=== PATIENT | male | born 2000 | race Caucasian/White ===

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

== ENCOUNTER 2020-07-14 07:34 | Emergency (ER) | payer OTHER ==
[2020-07-14 07:43] VITALS: BP 138/68; PULSE 73; TEMP 98.2; BMI 31.1
[2020-07-14] MEDS ORDERED: IBUPROFEN 600 MG TABLET (FP) PO ONE ×2 (07:51→08:33)
--- NOTE | 2020-07-14 08:38 | PDOC ---
Documentation entered by Susanna Cole SCRIBE, acting as scribe for Mercedes Robertson MD. Mercedes Robertson MD: This documentation has been prepared by the Douglas rajput Xhesika, SCRIBE, under my direction and personally reviewed by me in its entirety. I confirm that the documentation accurately reflects all work, treatment, procedures, and medical decision making performed by me. History of Present Illness - General Chief Complaint: Injury Stated Complaint: L ANKLE INJURY Time Seen by Provider: 07/14/20 07:50 History Source: Patient Exam Limitations: No Limitations - History of Present Illness Initial Comments: 07/14/20 08:01 HPI The pt is a 19y/o M with no pmh who presents to the ED with L sided ankle pain and numbness s/p injuy. 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 Pt denies falling, hitting his head or LOC. Pt denies any LE weakness or tingling. Denies fever, chills, chest pain, SOB, palpitation, dizziness, weakness, N, V, D, abdominal pain, bladder and bowel problems, leg swelling. Allergies: None Past Medical History: none Social history: Lives with family. No tobacco, ETOH or drug use. Surgical history: Appendicitis Meds: as documented in EMR Review of Systems Constitutional: no fevers or chills. Abdomen: no abdominal pain MUSCULOSKELETAL: +L sided ankle pain and numbness Back: no back pain SKIN: no redness or skin changes, no discharge, no rash. No wounds. Hematologic: no easy bruising/bleeding. NEUROLOGIC: No weakness, numbness or tingling. Allergic/Immunologic: no allergies All other systems reviewed and negative, or as documented in HPI. physical exam General: NAD, well appearing Abdomen: soft, no tenderness, nondistended Vascular: 2+ DP pulses symmetric and equal. Back: no midline tenderness, no stepoffs, FROM MSK: soft compartment. no calf tenderness. 5/5 plantar and dorsiflexion. SILT. no laxity at knee jt. 2+ DP pulses bilaterally. +mild lateral malleolus tenderness. +lateral swelling and tenderness of dorsal foot. No proximal fibular tenderness. no deformity Neuro: alert, no focal neurologic deficits Skin: color normal color, warm and well perfused. Cap refill <2 sec. 07/14/20 08:55 07/14/20 09:08 Past History - Medical History Allergies/Adverse Reactions: Allergies Allergy/AdvReac Type Severity Reaction Status Date / Time No Known Allergies Allergy Verified 12/24/18 17:47 Home Medications: Ambulatory Orders NK [No Known Home Medication] 07/14/20 COPD: No DVT: No - Surgical History Appendectomy: Yes - Immunization History Immunization Up to Date: Yes - Psycho-Social/Smoking History Smoking History: Never smoked Have you smoked in the past 12 months: No Information on smoking cessation initiated: No - Substance Abuse Hx (Audit-C & DAST Scrn) How often the patient has a drink containing alcohol: Never Score: In Men: 4 or > Positive; In Women: 3 or > Positive: 0 Screen Result (Pos requires Nsg. Audit-10AR): Negative In the last yr the pt used illegal drug/Rx for NonMed reason: No Score: Yes response is considered Positive: 0 Screen Result (Positive result requires Nsg. DAST-10): Negative *Physical Exam - Vital Signs Last Vital Signs Temp Pulse Resp BP Pulse Ox 98.2 F 73 18 138/68 99 07/14/20 07:36 07/14/20 07:36 07/14/20 07:36 07/14/20 07:36 07/14/20 07:36 Medical Decision Making - Medical Decision Making 07/14/20 08:34 Vital Signs Temp Pulse Resp BP Pulse Ox 98.2 F 73 18 138/68 99 07/14/20 07:36 07/14/20 07:36 07/14/20 07:36 07/14/20 07:36 07/14/20 07:36 Vital signs reviewed within normal limits Differential diagnosis includes contusion, ankle fracture, fibula fracture, foot fracture, hematoma. Neurovascularly intact No head trauma or injury X-ray of foot and ankle negative for acute fracture dislocation Patient most likely has a contusion of his left foot/ankle. Will provide ankle stirrup and Gagandeep wrap and crutches for ambulatory support. Rest ice and elevation, physical activity as tolerated, weightbearing as tolerated Discharge with primary follow-up/orthopedics as needed Discharge - Discharge Information Problems reviewed: Yes Clinical Impression/Diagnosis: Strain of left ankle and foot Qualifiers: Encounter type: initial encounter Qualified Code(s): S96.912A - Strain of unspecified muscle and tendon at ankle and foot level, left foot, initial encounter Contusion, foot Qualifiers: Encounter type: initial encounter Laterality: left Qualified Code(s): S90.32XA - Contusion of left foot, initial encounter Condition: Stable Disposition: HOME - Admission No - Follow up/Referral Referrals: Jarvis Souza MD [Staff Physician] - Rosalio Lloyd DO [Staff Physician] - - Patient Discharge Instructions Patient Printed Discharge Instructions: DI for Ankle Sprain, DI for Contusion Additional Instructions: You most likely have musculoskeletal strain/sprain of your foot and ankle with contusion (swelling of the area/bruising of the tissue) Avoid heavy lifting or strenuous activity to minimize further injury This should heal over the next 3-5 days. RICE rest ice elevate the affected area Rest, Ice (20 minutes at a time, 3 times a day), Compression (GAGANDEEP wrap or splint), Elevation (above the heart). Apply ice to the area for 10 minutes every 2 hours for the first 2 days after the injury to reduce swelling. continue with range of motion exercises, as this will facilitate the healing process; avoid being bed bound and immobile. If you have any worsening of symptoms, including severe pain/swelling/redness/numbness/changes in sensation/weakness/paralysis or any other concerns please return to the Emergency Department immediately. You were given a copy of the results from any tests performed today in the Emergency Department which have results available. Show these to your doctor(s). Some of the tests we sent may not have results yet so please call or have your doctor call the Emergency Department to follow up on all results. Please continue taking your home medications as directed. Do not use alcohol when taking any medication (especially antibiotics, tylenol or other pain medication) unless you check with the doctor or pharmacist. -flexeril is a muscle relaxant, take three times a day as needed may cause sleepiness, do not drive or operate machinery or take with alcohol. -topical lidoderm patch to the area affected, 12 hours on and 12 hours off.. -May take ibuprofen 400-600mg and/or tylenol 650 to 975 mg every 6 hours as needed for mild to moderate pain, available over the counter. This does not require narcotics, as it will precipitate injuries and falls. Please follow up with your primary doctor(s) within the next 1 week, but seek medical care sooner if your symptoms persist or worsen. Please call as soon as possible for an appointment. If you cannot follow up with your doctor please return to the Emergency Department for any urgent issues. Follow up with your primary care physician in 1 week if symptoms persist, or with orthopedics specialists if needed, referrals have been provided. - Post Discharge Activity Work/Back to School Note: Back to Work
== END 2020-07-14 09:48 | disposition home or self-care (01) ==
LOC: JER 07:34
DX: S96.912A Strain of unspecified muscle and tendon at ankle and foot level, left foot, initial encounter (principal); S90.32XA Contusion of left foot, initial encounter
CPT/HCPCS: 73610-TC-LT-FY; 73630-TC-LT; 99284-25